=== PATIENT | male | born 1995 | race Caucasian/White ===

== ENCOUNTER 2020-08-01 12:11 | Emergency (ER) | payer OTHER ==
[2020-08-01 12:16] VITALS: BP 147/97; PULSE 75; RESP 18; TEMP 97.8
[2020-08-01] MEDS ORDERED: BACITRACIN OINT 1 EACH PACKET TOPICAL ONE (12:27)
--- NOTE | 2020-08-01 12:44 | ED ---
Animal Bite HPI - General Chief Complaint: Animal Bite Stated Complaint: [facility] Animal bite Time Seen by Provider: 08/01/20 12:22 Source: patient Mode of arrival: ambulatory Limitations: no limitations - History of Present Illness Initial Comments: Patient is a 25-year-old male presenting to the emergency Department with complaints of cat bites/scratches to both of his hands. Patient states approximately half an hour prior to arrival, he was attacked by a stray cat. 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 Patient did apply bacitracin spray to his hands and then came to the ER for evaluation. They do have the cat at their animal control and will be observing the animal for 10 days for any signs of rabies. He is up-to-date with his tetanus vaccine. Patient's wounds were control, no active bleeding. There are no further complaints. - Related Data Previous Rx's Medication Instructions Recorded Amoxicillin/Potassium Clav 1 tab PO BID 7 Days #14 tab 08/01/20 [Augmentin 875-125 Tablet] Allergies Allergy/AdvReac Type Severity Reaction Status Date / Time No Known Allergies Allergy Verified 08/01/20 12:16 Review of Systems ROS Statement: Those systems with pertinent positive or pertinent negative responses have been documented in the HPI. ROS Other: All systems not noted in ROS Statement are negative. Past Medical History Past Medical History: No Reported History History of Any Multi-Drug Resistant Organisms: None Reported Additional Past Surgical History / Comment(s): wisdom teeth Past Psychological History: No Psychological Hx Reported Smoking Status: Never smoker Past Alcohol Use History: None Reported Past Drug Use History: None Reported General Exam - General Exam Comments Initial Comments: GENERAL: Patient is well-developed and well-nourished. Patient is nontoxic and in no acute distress. HEAD: Atraumatic, normocephalic. EYES: Pupils equal round and reactive to light, extraocular movements intact, sclera anicteric, conjunctiva are normal. Eyelids were unremarkable. ENT: TMs normal, nares patent, oropharynx clear without exudates. Moist mucous membranes. NECK: Normal range of motion, supple without lymphadenopathy or JVD. LUNGS: Unlabored respirations. Breath sounds clear to auscultation bilaterally and equal. No wheezes rales or rhonchi. HEART: Regular rate and rhythm without murmurs, rubs or gallops. ABDOMEN: Soft, nontender, normoactive bowel sounds. No guarding, no rebound. No masses appreciated. : Deferred MUSCULOSKELETAL: Normal extremities with adequate strength and normal range of motion, no pitting or edema. No clubbing or cyanosis. NEUROLOGICAL: Patient is alert and oriented x 3. Motor and sensory are also intact. Normal speech, normal gait. PSYCH: Normal mood, normal affect. SKIN: Warm, Dry, normal turgor. Patient has numerous scratches on both of his hands, he also has 1 puncture wound on the dorsal aspect of the right hand as well as the left hand. There is no active bleeding. No sutures are indicated. Limitations: no limitations Course Vital Signs 08/01/20 12:13 Temperature 97.8 F Pulse Rate 75 Respiratory 18 Rate Blood Pressure 147/97 O2 Sat by Pulse 98 Oximetry Medical Decision Making - Medical Decision Making She is a 25-year-old male here for numerous cat scratches and puncture wounds on both of his hands that happened about half hour prior to arrival. He does work for animal control and this happened during work hours. They will hold the animal for 10 days to observe for any signs of rabies. Patient declines rabies vaccine at this time. Patient's wounds were cleaned, did apply topical bacitracin. Patient will be started on Augmentin. Patient is stable for discharge. Patient is in agreement with this plan of care. Return parameters were discussed with the patient and they verbalized understanding. Case discussed with Dr. Davenport. Disposition Clinical Impression: Cat bite of multiple sites of hand and fingers Disposition: HOME SELF-CARE Condition: Stable Instructions (If sedation given, give patient instructions): Animal Bite (ED) Additional Instructions: Please return to the Emergency Department if symptoms worsen or any other concerns. Take antibiotic as prescribed. Keep wounds clean and dry, wash with mild soap and water. Follow-up with your regular doctor. Prescriptions: Amoxicillin/Potassium Clav [Augmentin 875-125 Tablet] 1 tab PO BID 7 Days #14 tab Is patient prescribed a controlled substance at d/c from ED?: No Referrals: None,Stated [Primary Care Provider] - 1-2 days
== END 2020-08-01 13:07 | disposition home or self-care (01) ==
LOC: EC 12:11
DX: S61.432A Puncture wound without foreign body of left hand, initial encounter (principal); S61.431A Puncture wound without foreign body of right hand, initial encounter; W55.01XA Bitten by cat, initial encounter; Y92.89 Other specified places as the place of occurrence of the external cause
CPT/HCPCS: 99283

== ENCOUNTER → 2020-10-24 | Outpatient (CLI) | payer OTHER ==
--- NOTE | 2020-10-24 13:47 | US ---
EXAMINATION TYPE: US scrotum with doppler. Grayscale and color Doppler Duplex imaging performed of bean durand scrotum. DATE OF EXAM: 10/24/2020 COMPARISON: NONE CLINICAL HISTORY: S30.22XA Contusion of scrotum and testes. Pain dog jumped up and hit him in the alla ticles. EXAM MEASUREMENTS: TESTICLES: Right Testicle: 4.9 x 2.4 x 3.0 cm Left Testicle: 4.9 x 2.5 x 3.1 cm EPIDIDYMIS HEAD: Right Epididymis: .8 x .8 x 1.4 cm Left Epididymis: .9 x 1.3 x 1.0 cm Doppler performed to assess for testicular vascularity; good bilateral color flow and waveforms are s een. There is no evidence of testicular torsion. Presence of hydroceles: No Presence of varicoceles: No IMPRESSION: 1. Normal testicular ultrasound
== END | disposition home or self-care (01) ==
LOC: RADUSWWP 12:32
PROVIDERS: ATTEND Emergency Medicine
DX: S30.22XA Contusion of scrotum and testes, initial encounter (principal)
CPT/HCPCS: 76870; 93975

== ENCOUNTER 2020-11-07 15:49 | Emergency (ER) | payer OTHER ==
[2020-11-07 15:54] VITALS: BP 145/84; PULSE 73; RESP 16; TEMP 97.8
[2020-11-07] MEDS ORDERED: LIDOCAINE 1% INJ 10MG/ML (20 ML MDV) SQ ONE (16:28)
[2020-11-07] MEDS ORDERED: DIPH,PERTUS(ACELL)TETVAC-LF 0.5 ML VIAL IM ONE (16:28)
[2020-11-07] MEDS ORDERED: BACITRACIN OINT 1 EACH PACKET TOPICAL ONE (16:29)
--- NOTE | 2020-11-07 16:53 | ED ---
Wound/Laceration HPI - General Chief Complaint: Wound/Laceration Stated Complaint: [facility]-hand lac Time Seen by Provider: 11/07/20 16:04 Source: patient Mode of arrival: ambulatory Limitations: no limitations - History of Present Illness Initial Comments: Patient is a 25-year-old male presenting to the emergency Department with complaints of a laceration to his right middle finger. He states he cut it opening a can of dog food at work today. Bleeding is controlled. This happened about an hour prior to arrival. He is not sure if his tetanus vaccine is up-to-date. He has no further complaints at this time. - Related Data Home Medications Medication Instructions Recorded Confirmed No Known Home Medications 11/07/20 11/07/20 Allergies Allergy/AdvReac Type Severity Reaction Status Date / Time No Known Allergies Allergy Verified 11/07/20 16:54 Review of Systems ROS Statement: Those systems with pertinent positive or pertinent negative responses have been documented in the HPI. ROS Other: All systems not noted in ROS Statement are negative. Past Medical History Past Medical History: No Reported History History of Any Multi-Drug Resistant Organisms: None Reported Additional Past Surgical History / Comment(s): wisdom teeth Past Psychological History: No Psychological Hx Reported Smoking Status: Never smoker Past Alcohol Use History: None Reported Past Drug Use History: None Reported General Exam - General Exam Comments Initial Comments: GENERAL: Patient is well-developed and well-nourished. Patient is nontoxic and in no acute distress. HEAD: Atraumatic, normocephalic. EYES: Pupils equal round and reactive to light, extraocular movements intact, sclera anicteric, conjunctiva are normal. Eyelids were unremarkable. ENT: Nares patent, oropharynx clear without exudates. Moist mucous membranes. NECK: Normal range of motion, supple without lymphadenopathy or JVD. LUNGS: Unlabored respirations. Breath sounds clear to auscultation bilaterally and equal. No wheezes rales or rhonchi. HEART: Regular rate and rhythm without murmurs, rubs or gallops. ABDOMEN: Soft, nontender, normoactive bowel sounds. : Deferred MUSCULOSKELETAL: Normal extremities with adequate strength and normal range of motion, no pitting or edema. No clubbing or cyanosis. NEUROLOGICAL: Patient is alert and oriented x 3. PSYCH: Normal mood, normal affect. SKIN: Warm, Dry, normal turgor. Patient has a 1 cm laceration to the palmar aspect of the right middle finger just proximal to the IP joint. Bleeding is controlled with pressure. Limitations: no limitations Course Vital Signs 11/07/20 15:51 Temperature 97.8 F Pulse Rate 73 Respiratory 16 Rate Blood Pressure 145/84 O2 Sat by Pulse 97 Oximetry Procedures - Laceration Laceration #1 Consent Obtained: verbal consent Indication: laceration Site: hand (Right middle finger, palmar aspect, proximal to the IP joint) Size (cm): 1 Description: linear Depth: simple, single layer Anesthesia Technique: local infiltration Amount (mls): 1 Pre-repair: irrigated extensively Type of Sutures: nylon Size of Sutures: 5-0 Number of Sutures: 3 Technique: simple, interrupted Patient Tolerated Procedure: well Medical Decision Making - Medical Decision Making Patient is a 25-year-old male here with a 1 cm laceration to his right middle finger, he cut it on a dog food can at work. His tetanus was not up-to-date, we did update this today. Patient's wound was cleaned, closed with 3, 5-0 sutures. He tolerated procedure well. He is stable for discharge. He will have sutures removed in 7-10 days. He'll keep area clean and dry. Disposition Clinical Impression: Laceration of right middle finger Disposition: HOME SELF-CARE Condition: Stable Instructions (If sedation given, give patient instructions): Care For Your Stitches (ED) Additional Instructions: Please return to the Emergency Department if symptoms worsen or any other concerns. Stitches need to be removed in 7-10 days. Keep area clean and dry, keep covered while at work. Wash with mild soap and water. Is patient prescribed a controlled substance at d/c from ED?: No Referrals: None,Stated [Primary Care Provider] - 1-2 days Time of Disposition: 17:29
== END 2020-11-07 17:41 | disposition home or self-care (01) ==
LOC: EC 15:49
DX: S61.212A Laceration without foreign body of right middle finger without damage to nail, initial encounter (principal); W26.8XXA Contact with other sharp object(s), not elsewhere classified, initial encounter
CPT/HCPCS: 90715; 99282; 12001; 90471; J2001